=== PATIENT | female | born 1945 | race Caucasian/White ===

== ENCOUNTER → 2017-07-29 | Outpatient (CLI) | payer OTHER ==
[~2017-07-29] MED LIST: ATEN50TA8 PO; LISI-725 PO; MELO7.5T5 PO; PRLSR20 PO; [UNRECOGNIZED DRUG - OTHER] OP
[2017-07-29 13:55] LABS: ALB/GLOB RATIO 1.1 (0.9-2); ALKALINE PHOSPHATASE 98 U/L (45-117); ALT/SGPT 34 U/L (12-78); AST/SGOT 27 U/L (15-37); BLOOD UREA NITROGEN 9 mg/dl (7-18); BUN/CREATININE RATIO 10.9 (10-20); CALCIUM 9.3 mg/dl (8.5-10.1); CARBON DIOXIDE 27 mmol/L (21-32); CHLORIDE 105 mmol/L (98-107); CHOLESTEROL 164 mg/dl (0-200); CHOLESTEROL/HDL RATIO 3.8; CREATININE 0.82 mg/dl (0.60-1.20); GLUCOSE 124 mg/dl (70-99); HDL CHOLESTEROL 43 mg/dl; LDL CHOLESTEROL CALCULATED 96 mg/dl; POTASSIUM 4.2 mmol/L (3.5-5.1); SODIUM 138 mmol/L (136-145); TRIGLYCERIDES 124 mg/dl (0-150); VERY LOW DENSITY LIPOPROT CALC 25 mg/dl
[2017-07-29 14:04] LABS: BASO % 0.6 %; BASO ABS # 0.07 K/uL (0-0.2); COMPLETE YES; EOS % 1.9 %; HEMATOCRIT 45.4 % (37-47); IG% 0.8 %; LYMPH % 18.3 %; LYMPH ABS # 2.04 K/uL (1.2-3.4); MEAN CELL VOLUME 91.5 fL (80-100); MEAN CORPUSCULAR HEMOGLOBIN 29.2 pg (25-34); MEAN CORPUSCULAR HGB CONC 31.9 g/dl (32-36); MEAN PLATELET VOLUME 10.3 fL (7.4-10.4); MONO % 10.1 %; NEUT % 68.3 %; PLATELET COUNT 322 K/uL (130-400); RED BLOOD COUNT 4.96 M/uL (4.2-5.4); WHITE BLOOD COUNT 11.16 K/uL (4.8-10.8)
== END | disposition home or self-care (01) ==
LOC: C.LABMFLN 08:56
PROVIDERS: ATTEND Family Medicine
DX: I10 Essential (primary) hypertension (principal); E78.5 Hyperlipidemia, unspecified

== ENCOUNTER 2018-12-09 04:52 | Inpatient (IN) ==
--- NOTE | 2018-10-27 12:19 | Anesthesiology Consultation ---
Date of Service October 27, 2018 Assessment & Plan (1) Encounter for pre-operative examination: Chart Review Chart Review: Acceptable Risk for Surgery and Patient seen in Pre Admission Testing Teaching & Discussion Instructed NPO after midnight before surgery, except medications with 15 cc of water. Medication instructions provided according to the PAT guidelines. History Surgery Operation Date: 12/09/18 09:50 Proposed Procedures p Left Total Knee Arthroplasty - Chuckie Parra MD Height/Weight Height: 5 ft 6 in Weight: 97.8 kg Allergies Allergy/AdvReac Type Severity Reaction Status Date / Time No Known Allergies Allergy Unknown NONE Verified 10/19/18 11:17 Medications Home Medications Medication Instructions Recorded Confirmed Last Taken atenolol 50 mg PO QAM 10/19/18 10/19/18 Unknown carboxymethylcellulose sodium 1 drp OPHTHALMIC (EYE) Q8H PRN 10/19/18 10/19/18 Unknown [Refresh Tears] lisinopril 20 mg PO QAM 10/19/18 10/19/18 Unknown meloxicam 7.5 mg PO DAILY PRN 10/19/18 10/19/18 Unknown omeprazole 20 mg PO QAM 10/19/18 10/19/18 Unknown Past Medical History Medical History GERD (gastroesophageal reflux disease) Hypertension Osteoarthritis Vertigo Occassional Past Surgical History Surgical History History of breast biopsy BENIGN History of cataract extraction with lens replacement B/L History of colonoscopy History of esophagogastroduodenoscopy (EGD) History of hysterectomy PARTIAL History of repair of hiatal hernia History of sinus surgery HX OF DEVIATED SEPTUM SURGERY History of total knee replacement RIGHT Past Anesthesia History No Hx of Anesthesia Complications and No Family Hx of Anesthesia Complications History of PONV No Motion Sickness Screening History of Motion Sickness: Yes Social History Smoking Status: Never smoker Do You Dip or Chew Tobacco: No Hx Alcohol Use: Yes Alcohol type: other alcohol intake frequency: holidays/special occasions only Hx Substance Use: No substance use type: does not use Exercise / Class Metabolic Activity III < 4 Walking/Shop/Light housework (no SOB with stairs as long as going slow; limited by knee pain. Denies any CP.) Review of Systems Pt denies any recent chest pain, shortness of breath, palpitations, cough, fever or URI. Physical Exam Vital Signs BP: 144/81 P: 53 SPO2: 98% RA T: 97.7 F R: 20 ENMT Mouth: + dental restorations (few crowns); no chipped teeth and no loose teeth Thyromental Distance: > or= 3.5 Finger Breadths (3.5) Mallampati Class: II Neck normal visual inspection; neck extension not limited Respiratory normal respiratory effort Auscultation: lungs clear to auscultation bilaterally Cardiovascular Rate/Rhythm: regular rhythm and + bradycardic Heart Sounds: no murmur Vessels: no carotid bruit Extremities: no edema Testing Electrocardiogram Date: 10/27/18 Findings: + SB @ (53) Chest X-Ray Date: 10/27/18 Findings: + NAD Mild-moderate cardiomegaly Laboratory Results 10/27/18 11:57 10/27/18 11:57 Blood Type O Positive 10/27/18 11:57 Antibody Screen NEGATIVE 10/27/18 11:57 PT 10.4 Seconds (9.0-12.0) 10/27/18 11:57 INR 1.0 (0.9-1.1) 10/27/18 11:57 APTT 30.2 Seconds (21.0-31.0) 10/27/18 11:57 Hemoglobin A1c 6.3 % (4.5-5.6) H 10/27/18 11:57 Urine Color Yellow 10/27/18 08:24 Urine Appearance Cloudy (Clear) H 10/27/18 08:24 Urine pH 6.0 (4.5-7.5) 10/27/18 08:24 Ur Specific [place] 1.018 (1.000-1.030) 10/27/18 08:24 Urine Protein Negative (Negative) 10/27/18 08:24 Urine Glucose (UA) Negative (Negative) 10/27/18 08:24 Urine Ketones Negative (Negative) 10/27/18 08:24 Urine Nitrite Negative (Negative) 10/27/18 08:24 Ur Leukocyte Esterase Trace (Negative) H 10/27/18 08:24 Urine WBC (Auto) 1-5 /hpf (0-5) 10/27/18 08:24 Urine RBC (Auto) 0-4 /hpf (0-4) 10/27/18 08:24 U Hyaline Cast (Auto) Not Reportable 10/27/18 08:24 U Epithel Cells (Auto) >30 /lpf (0-5) H 10/27/18 08:24 Urine Bacteria (Auto) Negative (Negative) 10/27/18 08:24 *surgeon made aware of elevated WBC count
--- NOTE | 2018-10-27 12:27 | PAT Medication Instructions ---
Medication Instructions Date of Service October 27, 2018 Home Medications atenolol 50 mg PO QAM [Refresh Tears] 1 drp OPHTHALMIC (EYE) Q8H PRN lisinopril 20 mg PO QAM meloxicam 7.5 mg PO DAILY PRN omeprazole 20 mg PO QAM ASK your surgeon for instructions meloxicam 7.5 mg PO DAILY PRN DO NOT take the morning of surgery lisinopril 20 mg PO QAM\ Take morning of surgery With a small sip of water, OTHERWISE NOTHING TO EAT OR DRINK AFTER MIDNIGHT: atenolol 50 mg PO QAM [Refresh Tears] 1 drp OPHTHALMIC (EYE) Q8H PRN omeprazole 20 mg PO QAM Take evening before surgery [Refresh Tears] 1 drp OPHTHALMIC (EYE) Q8H PRN Other Notes If you have any questions please call us at [phone] or [phone] or [phone] or [phone]
--- NOTE | 2018-10-27 12:45 | XRay Report ---
XR chest Pre-admission PA/Lat CLINICAL HISTORY: Preoperative evaluation. COMPARISON STUDY: No previous studies for comparison. FINDINGS: Lung volumes are normal. There is no pneumothorax or pleural effusion. There is no consolid ation or evidence for pulmonary edema. Mild to moderate cardiomegaly is noted. Mediastinal contours a re otherwise normal. IMPRESSION: 1. No acute cardiopulmonary findings. 2. Mild to moderate cardiomegaly. Electronically signed by: Dhaval Cook M.D. 10/27/2018 12:43 PM
[2018-10-27 12:48] LABS: Basophils # (auto) 0.06 K/uL (0-0.2); Basophils % (auto) 0.5 %; Eosinophils # (auto) 0.23 K/uL (0-0.5); Eosinophils % (auto) 1.9 %; Hematocrit (blood only) 44.9 % (37-47); Hemoglobin 14.6 g/dL (12.0-16.0); Immature Granulocytes # (auto) 0.09 K/uL (0.00-0.02); Immature Granulocytes % (auto) 0.7 %; Lymphocytes # (auto) 2.59 K/uL (1.2-3.4); Lymphocytes % (auto) 21.2 %; Mean Corpuscular Hgb Conc 32.5 g/dL (32-36); Mean Corpuscular Volume 91.3 fL (80-100); Mean Platelet Volume 10.3 fL (7.4-10.4); Monocytes # (auto) 1.14 K/uL (0.11-0.59); Monocytes % (auto) 9.3 %; Neutrophils # (auto) 8.11 K/uL (1.4-6.5); Neutrophils % (auto) 66.4 %; Platelet Count 300 K/uL (130-400); RDW Coefficient of Variation 14.1 % (11.5-14.5); Red Blood Count 4.92 M/uL (4.2-5.4); White Blood Count 12.22 K/uL (4.8-10.8)
[2018-10-27 12:58] LABS: Partial Thromboplastin Ratio 1.2; Partial Thromboplastin Time 30.2 Seconds (21.0-31.0); Prothrombin Time 10.4 Seconds (9.0-12.0)
[2018-10-27 13:02] LABS: Appearance Urine Cloudy (Clear); Bacteria Urine Automated Negative (Negative); Bilirubin Urine Negative (Negative); Color Urine Yellow; Epithelial Cell Urine Auto >30 /lpf (0-5); Glucose Urine UA Negative (Negative); Ketones Urine Negative (Negative); Leukocyte Esterase Urine Trace (Negative); Nitrite Urine Negative (Negative); Protein Urine Negative (Negative); Specific Gravity Urine 1.018 (1.000-1.030); Urobilinogen Urine Negative (Negative)
[2018-10-27 13:04] LABS: Albumin Level 3.7 gm/dl (3.4-5.0); BUN Creatinine Ratio 10.3 (10-20); Calcium 9.5 mg/dl (8.5-10.1); Creatinine Clr Calc Pharmacy 66.7 ml/min; Est GFR (African American) 76.6; Est GFR (Non-African American) 66.1; Potassium 3.9 mmol/L (3.5-5.1)
[2018-10-27 13:43] LABS: Estimated Average Glucose 134 mg/dl
--- NOTE | 2018-12-08 12:41 | History and Physical Report ---
DATE OF ADMISSION: 12/09/2018 CHIEF COMPLAINT: Chronic left knee pain. HISTORY OF PRESENT ILLNESS: This is a 73-year-old female patient of Dr. Parra'prudencio complaining of chronic left knee pain, longstanding, now progressively getting worse. The patient has failed conservative treatment including intraarticular injections, anti-inflammatories, glucosamine and chondroitin. She has been diagnosed with end-stage osteoarthritis per clinical and radiographic exams. She has increased pain with weightbearing activities and her pain does interfere with her activities of daily living. PAST MEDICAL HISTORY: Hypertension, osteoarthritis, sciatica, acid reflux, obesity, dental issues. SOCIAL HISTORY: Nonsmoker, nondrinker. PAST SURGICAL HISTORY: Right knee surgery, hernia surgery, breast biopsy and nasal surgery in the past. REVIEW OF SYSTEMS: Chronic left knee pain and instability. Otherwise, denies shortness of breath, chest pain, nausea, vomiting or any other joint complaints. FAMILY HISTORY: Noncontributory. MEDICATIONS: Lisinopril 30 mg daily, omeprazole 10 mg 2 capsules daily, meclizine 25 mg daily as needed, atenolol 50 mg daily. ALLERGIES: No known drug allergies. PHYSICAL EXAMINATION: GENERAL: Well-developed, well-nourished 72-year-old female in no acute distress. She is alert and oriented x3 and pleasant. HEENT: Normocephalic, atraumatic. Extraocular motions are intact. Pupils were equal and reactive to light. HEART: Regular rate and rhythm, no murmurs. LUNGS: Clear. ABDOMEN: Soft, nontender. EXTREMITIES: Left knee, limited range of motion of 0-120 degrees with a mild effusion. She has a varus deformity. She has medial joint line tenderness, 4/5 strength. Neurologically and neurovascularly, intact in her left lower extremity. DIAGNOSES: Left knee end-stage osteoarthritis, hypertension, osteoarthritis, sciatica, acid reflux, obesity and dental issues. PLAN: The patient was advised of her diagnosis. Indications, risks, benefits, and postop course have all been reviewed. The patient wished to proceed with a left total knee arthroplasty. Necessary consent forms, preoperative testing and clearances will be obtained.
[2018-12-09] MEDS ORDERED: ACETAMINOPHEN 500 MG TAB PO SCH (06:00)
[2018-12-09] MEDS ORDERED: dexAMETHasone 4 MG TAB PO SCH (06:00)
[2018-12-09] MEDS ORDERED: GABAPENTIN 300 MG PO SCH (06:00)
[2018-12-09] MEDS ORDERED: ROPIVACAINE 0.5% HCL/PF 150 MG, BUPIVACAINE 0.5% MPF 30 ML, EPINEPHrine 30MG/30ML (OR U... INFIL SCH (06:00)
[2018-12-09] MEDS ORDERED: CEFAZOLIN 2000MG 2,000 MG/15 ML SYR IV SCH (06:00)
[2018-12-09] MEDS ORDERED: TRANEXAMIC ACID 1,000 MG **IV Pre-op IV SCH (06:00)
[2018-12-09] MEDS ORDERED: CeleBREX 200 MG CAP PO SCH (06:00)
[2018-12-09] MEDS ORDERED: METOCLOPRAMIDE HCL 10 MG TABLET PO SCH (06:00)
[2018-12-09] MEDS ORDERED: FAMOTIDINE 20 MG TAB PO SCH (06:00)
[2018-12-09] MEDS: LR 500ML BOLUS, THEN 15ML/HR IV SCH ×3 (06:03→10:40)
[2018-12-09] MEDS ORDERED: ROPIVACAINE 0.5% 5 MG/ML 30 ML VIAL ONE (06:18)
[2018-12-09] MEDS ORDERED: BUPIVACAINE 0.5 % 5 MG/1 ML PF 10ML VIAL ONE (06:18)
[2018-12-09] MEDS ORDERED: TRANEXAMIC ACID 1,000 MG **IV Intra-op IV SCH (06:30)
[2018-12-09] MEDS ORDERED: MIDAZOLAM HCL 1 MG/ML 2ML VIAL ONE (06:31)
[2018-12-09] MEDS ORDERED: KETAMINE HCL INJ 50 MG/ML 10 ML VIAL ONE (06:32)
[2018-12-09] MEDS ORDERED: BACITRACIN INJ 50,000 UNIT VIAL ONE (06:46)
[2018-12-09] MEDS ORDERED: POVIDONE-IODINE OP SOLN 30 ML BTL ONE (06:46)
[2018-12-09] MEDS ORDERED: ORTHO JOINT ANESTHETIC ONE (06:46)
--- NOTE | 2018-12-09 07:06 | History & Physical Bridge Note ---
Date of Service December 09, 2018 History & Physical Bridge Note I have examined the patient, reviewed the History & Physical and in the interval since the performance of the History & Physical I have noted the following changes of clinical significance: no changes noted
[2018-12-09] MEDS ORDERED: LIDOCAINE HCL 2% 2 ML VIAL/AMP(20MG/ML) INFIL ONE (07:36)
[2018-12-09] MEDS ORDERED: GLYCOPYRROLATE 0.2 MG/ML VIAL ONE (07:37)
[2018-12-09] MEDS ORDERED: ONDANSETRON INJ 2 MG/ML 2 ML VIAL ONE (07:37)
[2018-12-09] MEDS ORDERED: PROPOFOL IV EMULSION 10 MG/ML 20 ML VIAL IV ONE ×2 (07:37→07:55)
[2018-12-09] MEDS ORDERED: ATROPINE SULFATE 0.1 MG/ML 10ML SYR IV PRN (08:03)
[2018-12-09] MEDS ORDERED: HYDROmorphone INJ 2 MG/ML SYR/VIAL IV PRN (08:03)
[2018-12-09] MEDS ORDERED: ONDANSETRON INJ 2 MG/ML 2 ML VIAL IV PRN ×2 (08:03→10:13)
[2018-12-09] MEDS ORDERED: ePHEDrine sulfate 50 MG/ML AMP IV PRN (08:03)
--- NOTE | 2018-12-09 09:16 | Post Operative Brief Note ---
Immediate Post Op Note v1 Date of Surgery December 09, 2018 Pre & Post Diagnosis Operation Date: 12/09/18 07:00 Pre-Op Diagnosis: Left Knee Osteoarthritis Post-Op Diagnosis: Left Knee Osteoarthritis Procedure Operation Date: 12/09/18 07:00 Actual Procedures p Left Total Knee Arthroplasty(Left) - Chuckie Parra MD Surgeon Chuckie Parra MD Materials Planner Damián DOVER Estimated Blood Loss 5 Findings Consistent with Post-Op Diagnosis Specimens Bone cuts Drains Hemovac Drain Anesthesia Type Spinal MAC Complications none Disposition Accompanied Patient To Recovery: No Disposition: Recovery Room Overlapping Procedure I was immediately available: during the entire case.
--- NOTE | 2018-12-09 09:32 | Operative Report ---
Post Operative Report Pre & Post Diagnosis Operation Date: 12/09/18 07:00 Pre-Op Diagnosis: Left Knee Osteoarthritis Post-Op Diagnosis: Left Knee Osteoarthritis Procedure Operation Date: 12/09/18 07:00 Actual Procedures p Left Total Knee Arthroplasty(Left) - Chuckie Parra MD Surgeon Chuckie Parra MD Can Filling Machine Operator Damián DOVER Estimated Blood Loss 5 Findings Consistent with Post-Op Diagnosis Specimens Bone cuts Drains 2 Hemovac Anesthesia Type Spinal MAC Complications none Disposition Accompanied Patient To Recovery: No Disposition: Recovery Room Indications 73-year-old female with chronic progressive osteoarthritis in her left knee. She has a varus knee [id number] medial compartment and advanced patellofemoral osteoarthritis. She has had a prior right knee replacement. Description of Procedure The patient was taken to the operating room and anesthetized under spinal MAC regional block. Patient was placed supine on the the operating table. A pneumatic tourniquet was placed about the left upper thigh. The knee exam demonstrated varus knee tight medial compartment good range of motion. The involved leg was elevated exsanguinated with Esmarch bandage and the pneumatic tourniquet was raised to 325 millimeters mercury. A longitudinal incision was made across the anterior knee. Skin flaps were elevated. An incision was made into the medial retinaculum and extended up into the mid third of the quadriceps tendon and extended down to the tibial tubercle. Intra-articular findings demonstrated medial compartment and patellofemoral DJD. [id number] medial compartment and grade 3 trochlear groove osteoarthritis and grade 4 patella osteoarthritis. The knee was exposed by excising cruciate ligaments and menisci. The infrapatellar fat pad was resected. The fat pad over the anterior femur at the upper aspect of the articular surface was resected for placement of the component in that area. A subperiosteal peel lateral release was performed around the patella. An additional medial release and posterior medial release performed to balance ligaments. The [employer] journey 2.0 total knee arthroplasty system was utilized for the procedure. The custom femoral cutting guide was pinned in position. The distal femoral cut was made. The size 4, 5 in 1 cutting block was placed. The anterior posterior and chamfer cuts were made. The knee was extended and a free hand cut technique was performed to the patella. The patella with was measured and the width was reproduced using a 32 patella component. 3 drill holes are made for the patella component pegs. The tibia was then subluxed. The custom tibial cutting block was pinned in position and the proximal tibial cut was made with the oscillating saw. The size 2 tibial trial was externally rotated in line with the tibial tubercle and pinned in position. The punch for the stem was used. The femoral trial was inserted and centered the notch cutting devices were used and the collet was placed. Tibial trials were used for the insert. The size 10 trial gave balanced ligaments through full range of motion. Patella tracking was assessed with range of motion. The patella tracked centrally. The trials were removed. The Orthomix anesthetic cocktail was injected per protocol. The cut bone surfaces and soft tissue were copiously irrigated with antibiotic solution with bacitracin. The final components were cemented with Simplex cement. The final components were size 4 left [employer] journey 2.0 posterior stabilized femoral, 2 tibial baseplate, 10 mm posterior stabilized poly-insert, 32 symmetrical patella. While the cement cured the Betadine soak was used per protocol. When the cement cured the knee was copiously irrigated with pulsatile lavage antibiotic solution with bacitracin. 2 drains were brought out laterally connected to Hemovac. The quadriceps tendon and medial retinaculum were closed with interrupted figure-of- eight #1 Vicryl sutures. The knee was taken through full range of motion and repair was secure. The subcutaneous tissues were closed with 2-0 Vicryl sutures. The skin was closed with surgical glue system. A sterile dressing was applied. The tourniquet was let down and the patient had good capillary refill to the extremity. The patient tolerated the procedure well. My physician health center assistant Damián DOVER assisted in the procedure including prepping draping leg positioning soft tissue retraction instrument management and assisted in the closure ,dressings application and will participate in postoperative care the patient. I attest to the content of the Intraoperative Record and any orders documented therein. Any exceptions are noted below.
--- NOTE | 2018-12-09 09:59 | XRay Report ---
XR knee LT 2V routine CLINICAL HISTORY: 73 years-old Female presenting with Surgical Post Op. TECHNIQUE: Frontal and lateral views of the left knee were obtained. COMPARISON: None. FINDINGS: Postsurgical changes of total left knee arthroplasty with patellar resurfacing. Expected intra-articu lar and soft tissue emphysema. Surgical drains in place. No malalignment. No periprosthetic fracture. Suspected underlying osteopenia. IMPRESSION: Expected postsurgical appearance status post left total knee arthroplasty with patellar resurfacing. Electronically signed by: Levi Stephenson M.D. 12/09/2018 9:58 AM
[2018-12-09] MEDS ORDERED: TRAMADOL HCL 50 MG TABLET PO PRN (10:13)
[2018-12-09] MEDS ORDERED: MoRPHine SULFATE 2 MG/ML CARP IV PRN (10:13)
[2018-12-09] MEDS ORDERED: NALOXONE HCL 0.4 MG/1 ML VIAL/CARP IV PRN (10:13)
[2018-12-09] MEDS ORDERED: MAGNESIUM HYDROXIDE SUSP 30 ML UDC PO PRN (10:13)
[2018-12-09] MEDS ORDERED: METOCLOPRAMIDE HCL INJ 5 MG/ML 2 ML VIAL IV PRN (10:13)
[2018-12-09] MEDS ORDERED: BISACODYL 10 MG SUPP PR PRN (10:13)
[2018-12-09] MEDS: SODIUM CHLORIDE 0.9% 1000ML 1,000 ML IV SCH ×2 (12:04→21:51)
--- NOTE | 2018-12-09 14:00 | Anesthesiology Progress Note ---
Date of Service December 09, 2018 Anesthesia Post Procedure Vital Signs Vital Signs: Temp Pulse Pulse Resp BP Pulse Ox 12/09/18 13:00 36.6 C 72 16 151/71 H 95 12/09/18 12:11 59 L 16 145/74 H 97 12/09/18 11:11 64 16 144/73 H 96 12/09/18 10:45 65 16 157/82 H 97 12/09/18 10:15 36.7 C 70 18 158/74 H 92 12/09/18 10:00 68 16 150/76 H 94 12/09/18 09:50 36.8 C 74 13 143/81 H 95 12/09/18 09:40 70 19 151/72 H 93 12/09/18 09:30 71 17 143/80 H 93 12/09/18 09:22 37.4 C 81 19 163/64 H 93 12/09/18 05:43 36.6 C 55 L 20 195/65 H 97 Pain Intensity Left Knee: Pain Intensity: 5 Notes Mental Status: alert / awake / arousable Patient Amnestic to Procedure: Yes Nausea / Vomiting: adequately controlled Pain: adequately controlled Airway Patency, RR, SpO2: stable & adequate BP & HR: stable & adequate Hydration State: stable & adequate Anesthetic Complications: no major complications apparent and Pt Satisfied with anesthetic care
[2018-12-09] MEDS: CEFAZOLIN 2000MG 2,000 MG/15 ML SYR IV SCH ×2 (14:15→21:52)
[2018-12-09] MEDS: ACETAMINOPHEN 500 MG TAB PO SCH ×2 (14:15→21:51)
[2018-12-09] MEDS: DOCUSATE SODIUM 100 MG CAP PO SCH (20:48)
[2018-12-09] MEDS: ASPIRIN 81 MG ECTAB PO SCH (20:48)
[2018-12-09] MEDS: CeleBREX 200 MG CAP PO SCH (20:49)
[2018-12-09] MEDS: SENNA 8.6 MG TAB PO SCH (20:49)
[2018-12-10] MEDS: ACETAMINOPHEN 500 MG TAB PO SCH ×3 (05:59→21:35)
[2018-12-10 06:38] LABS: Hematocrit (blood only) 35.6 % (37-47); Hemoglobin 11.6 g/dL (12.0-16.0); Mean Corpuscular Hgb Conc 32.6 g/dL (32-36); Mean Corpuscular Volume 89.7 fL (80-100); Mean Platelet Volume 10.3 fL (7.4-10.4); Platelet Count 241 K/uL (130-400); RDW Standard Deviation 46.1 fL (36.4-46.3); Red Blood Count 3.97 M/uL (4.2-5.4); White Blood Count 20.37 K/uL (4.8-10.8)
[2018-12-10 07:15] LABS: BUN Creatinine Ratio 12.8 (10-20); Calcium 8.5 mg/dl (8.5-10.1); Creatinine Clr Calc Pharmacy 73.4 ml/min; Est GFR (African American) 84.9; Est GFR (Non-African American) 73.2; Potassium 3.6 mmol/L (3.5-5.1)
--- NOTE | 2018-12-10 08:27 | Orthopedic Progress Note ---
Date of Service December 10, 2018 Assessment & Plan (1) Left knee DJD: POD #1, Left TKA DVT proph- ASA D/C planning- HOme w OPPT PT/ OT Subjective POD #1, Doing well, denies SOB, CP, N/V, pain controlled well. Physical Exam 2 Vital Signs (Past 24 Hours): Last Vital Signs Temp 36.6 C 12/10/18 07:08 Pulse 55 L 12/10/18 07:08 Resp 17 12/10/18 07:08 BP 157/65 H 12/10/18 07:08 Pulse Ox 97 12/10/18 07:08 Physical Exam: Left knee dressings c/d/i, no drainage, toes and ankle mobile, no calf tenderness,, A&Ox3. Drain in tact.
[2018-12-10] MEDS: ATENOLOL 50 MG TABLET PO SCH (08:55)
[2018-12-10] MEDS: ASPIRIN 81 MG ECTAB PO SCH ×2 (08:55→20:40)
[2018-12-10] MEDS: PANTOprazole 40 MG TAB PO SCH (08:55)
[2018-12-10] MEDS: DOCUSATE SODIUM 100 MG CAP PO SCH ×2 (08:55→20:41)
[2018-12-10] MEDS: CeleBREX 200 MG CAP PO SCH ×2 (08:55→20:40)
[2018-12-10] MEDS: MULTIVITAMIN TAB PO SCH (08:56)
[2018-12-10] MEDS: OXYCODONE HCL IR 5 MG TAB (IMMEDIATE RELEASE) PO PRN ×2 (08:58→16:02)
--- NOTE | 2018-12-10 09:32 | Anesthesiology Progress Note ---
Date of Service December 10, 2018 Anesthesia Post Procedure Vital Signs Vital Signs: Temp Pulse Pulse Resp BP Pulse Ox 12/10/18 07:08 36.6 C 55 L 17 157/65 H 97 12/10/18 03:47 36.4 C L 67 18 159/68 H 97 12/10/18 00:20 57 L 12/09/18 23:09 36.5 C 49 L 17 148/65 H 96 12/09/18 15:08 36.5 C 60 17 147/76 H 96 12/09/18 13:00 36.6 C 72 16 151/71 H 95 12/09/18 12:11 59 L 16 145/74 H 97 12/09/18 11:11 64 16 144/73 H 96 12/09/18 10:45 65 16 157/82 H 97 12/09/18 10:15 36.7 C 70 18 158/74 H 92 12/09/18 10:00 68 16 150/76 H 94 12/09/18 09:50 36.8 C 74 13 143/81 H 95 12/09/18 09:40 70 19 151/72 H 93 Pain Intensity Left Knee: Pain Intensity: 5 Notes Mental Status: alert / awake / arousable and participated in evaluation Patient Amnestic to Procedure: Yes Nausea / Vomiting: adequately controlled Pain: adequately controlled Airway Patency, RR, SpO2: stable & adequate Hydration State: stable & adequate Neuraxial Anesthesia: was administered and sensory block is resolving Anesthetic Complications: no major complications apparent and Pt Satisfied with anesthetic care
[2018-12-10] MEDS: SENNA 8.6 MG TAB PO SCH (20:41)
[2018-12-11 06:06] LABS: Hematocrit (blood only) 34.5 % (37-47); Hemoglobin 11.1 g/dL (12.0-16.0); Mean Corpuscular Hgb Conc 32.2 g/dL (32-36); Mean Corpuscular Volume 91.8 fL (80-100); Platelet Count 232 K/uL (130-400); RDW Coefficient of Variation 14.5 % (11.5-14.5); RDW Standard Deviation 48.7 fL (36.4-46.3); Red Blood Count 3.76 M/uL (4.2-5.4); White Blood Count 14.77 K/uL (4.8-10.8)
[2018-12-11] MEDS: ACETAMINOPHEN 500 MG TAB PO SCH ×2 (06:39→13:16)
[2018-12-11 06:42] LABS: BUN Creatinine Ratio 16.4 (10-20); Calcium 8.4 mg/dl (8.5-10.1); Creatinine Clr Calc Pharmacy 72.4 ml/min; Est GFR (African American) 83.6; Est GFR (Non-African American) 72.1; Potassium 3.3 mmol/L (3.5-5.1)
[2018-12-11] MEDS: PANTOprazole 40 MG TAB PO SCH (07:28)
[2018-12-11] MEDS: DOCUSATE SODIUM 100 MG CAP PO SCH (07:28)
[2018-12-11] MEDS: MULTIVITAMIN TAB PO SCH (07:28)
[2018-12-11] MEDS: ATENOLOL 50 MG TABLET PO SCH (07:31)
[2018-12-11] MEDS: CeleBREX 200 MG CAP PO SCH (07:31)
[2018-12-11] MEDS: ASPIRIN 81 MG ECTAB PO SCH (07:31)
[2018-12-11] MEDS ORDERED: HydrALAZINE HCL 20 MG/ML VIAL IV ONE (08:14)
--- NOTE | 2018-12-11 08:46 | Orthopedic Progress Note ---
Date of Service December 11, 2018 Assessment & Plan (1) Left knee DJD: POD #2, Left TKA Patient had discussed medical consult yesterday with Damián Lange PA-C. Patient was refusing consult due to the fact that she did not want to pay the extra bill. I have ordered her hydralazine 5 mg IV at this time. We will see how her blood pressure reacts to this. If it continues to climb higher, I told her that we would need to get a medical consult to look at her blood pressures and add any medications necessary. She was in agreement. We discussed that she needs to get a blood pressure cuff at home and take her pressures regularly. If she goes home today, she will need to follow-up with her primary care physician next week. Patient is in agreement and understands. I will recheck her later this morning to see how she is doing. DVT proph- ASA D/C planning- HOme w OPPT PT/ OT Subjective Patient is postop days 2 status post left total knee arthroplasty She is currently lying in bed and is awake and alert and oriented. She denies pain at this time. Denies shortness of breath, chest pain, lightheadedness. Nursing came to me this morning and stated she had an elevated blood pressure of 179/77. Patient states that her blood pressures do fluctuate often especially when in the hospital. Her blood pressure history while during here during this stay ranged from 139 systolic blood pressure to 195. She states that she does not check her blood pressure at home and that her physician wanted to adjust her medications prior to the surgery however the patient asked to have this done after the surgery instead. Currently she is comfortable and has no complaints of pain, headache, dizziness, weakness. She is currently on atenolol 50 mg p.o. every morning and lisinopril 20 mg p.o. every morning. Physical Exam 2 Vital Signs (Past 24 Hours): Last Vital Signs Temp 36.4 C L 12/11/18 06:17 Pulse 51 L 12/11/18 07:35 Resp 16 12/11/18 06:17 BP 179/77 H 12/11/18 07:35 Pulse Ox 94 12/11/18 06:17 Physical Exam: Silverlon dressing is clean dry and intact. Calves are soft and nontender. Toes are mobile. Neurovascular is intact.
[2018-12-11] MEDS ORDERED: POTASSIUM CHLORIDE 20 MEQ TABCR PO STA (12:06)
--- NOTE | 2018-12-24 06:02 | Discharge Summary ---
HISTORY OF PRESENT ILLNESS: This is a 73-year-old female patient of Dr. Parra'prudencio complaining of chronic left knee pain, longstanding, now progressively getting worse. The patient failed conservative treatment and elected to proceed with a left total knee arthroplasty. PAST MEDICAL HISTORY: Hypertension, osteoarthritis, sciatica, acid reflux, obesity and dental issues. POSTOPERATIVE COURSE: The patient was followed closely postoperatively with medical consultation, DVT prophylaxis in the form of aspirin, physical therapy and pain control. On postoperative day #2, she did have a bit of hypertension, systolic was run in the upper 160s. She was noted to have hypokalemia, noted to be at 3.3. She was given a 1 time dose of potassium prior to discharge. She was instructed to get lab work early the following week for a basic metabolic panel to be sent to PCP and she understood that she needed to have her blood pressure checked in her PCP's office within the next week or so. Otherwise, this is an uneventful postoperative course. PHYSICAL EXAMINATION: On discharge, the patient's dressings were clean, dry and intact. There was no redness or drainage. She had no calf tenderness. Negative Homans sign. Toes and ankle were mobile. Neurologically and neurovascularly, she is intact in her left lower extremity. DIAGNOSES: Status post left total knee arthroplasty with a history of hypertension, osteoarthritis, sciatica, acid reflux, obesity and dental issues. PLAN: The patient was discharged home with outpatient physical therapy. She will continue her preadmission medications with the addition of pain medications and aspirin for DVT prophylaxis. The patient will follow up as scheduled as an outpatient.
== END 2018-12-11 14:04 | disposition home or self-care (01) | DRG 470 ==
LOC: ASU 04:52 → 3E 09:29